=== PATIENT | female | born 1945 | race Caucasian/White ===

== ENCOUNTER 2016-12-12 04:59 | Observation (INO) | payer OTHER, MEDICARE ==
[2016-12-12] MEDS: NS 1000 ML 1,000 ML IV SCH ×2 (05:15→20:59)
[2016-12-12 05:16] VITALS: BMI 23.4
--- NOTE | 2016-12-12 05:21 | DR.GENAD ---
HPI - PCP Primary Care Physician: ELVI - Complaint/Symptoms Chief Complaint Doctors Comments: Patient states she woke up about two hours ago with her hurt pounding and could not get her breath. States she has been waking up about every two hours to go to the bathroom and having leg cramps. States she has fibromyalgia and her legs hurt often. She has been having problems with her stomach and saw Dr. Sanchez recently for an upper GI but she does not know the results. States she went to see Dr. Tapia, her heart doctor last week and he told her her heart was doing fine. She is having chest tightness with problems breathing. states she has problems like this when she gets dehydrated. states she has not been able to eat much lately because of her stomach problems. States she seee a PA in [place] but the ambulance brings her to this hospital. She denies cold or cough, fever or chills. She denies any recent trauma. Chief Complaint:: "I WOKE UP LEGS HURTING COULDNT HARDLY BREATH AND MY HEART WAS POUNDING.' - Nurses notes reviewed Nurses Notes Review: Yes - Source History Provided: Patient - Mode of Arrival Mode of Arrival: Wheelchair - Timing Onset of Chief Complaint: 12/12/16 Came on: Gradually - Duration Duration: Constant How lon Duration: Hours - Location Location: chest tightness; heart pounding - Severity Severity: Moderate - Modifying Factors Worsens:: nothing Improves:: nothing PMH - PMH Past Medical History: Yes Past Medical History: Anxiety, Dyslipidemia, GERD, Hypertension, Hypothyroidism Past Surgical History: Yes Surgical History: Cholecystectomy, Hysterectomy - Family History History of Family Medical Conditions: Yes Family Medical History: Diabetes Mellitus, Cancer, Coronary Artery Disease, Hypertension - Social History Alcohol Use: None Do you use any recreational Drugs:: No Lives Where: Home - infectious screening Have you traveled outside the country in the last 6 months?: No ROS - Review of Systems Constitutional: No Symptoms Reported, Loss of Appetite. negative: See HPI, Chills, Diaphoresis, Fever, Malaise, Weakness, Irritable, Fatigue, Other Eyes: No Symptoms Reported. negative: See HPI, Eye Pain, Blurred Vision, Tearing, Discharge, Photophobia, Diplopia, Other ENTM: No Symptoms Reported Respiratoy: No Symptoms Reported, Short of Breath. negative: See HPI, Productive Cough, Non-Productive Cough, Moist Cough, Dry Cough, Hacking Cough, Barking Cough, Brassy Cough, Orthopnea, Stridor, Wheezing, Hemoptysis, Other Cardiovascular: Chest Pain, Palpitations. negative: No Symptoms Reported, See HPI, Edema, Syncope, Cyanosis, Skin Mottling, Other Gastrointestinal/Abdominal: No Symptoms Reported. negative: See HPI, Abdominal Pain, Constipation, Diarrhea, Nausea, Vomiting, Food Intolerance, Other Genitourinary: No Symptoms Reported. negative: See HPI, Discharge, Dysuria, Frequency, Hematuria, Pain, Bleeding, Other Neurological: No Symptoms Reported, Anxiety, Emotional Problems Musculoskeletal: No Symptoms Reported Integumentary: No Symptoms Reported. negative: See HPI, Change in Color, Change in Hair/Nails, Dryness, Lesions, Lumps, Rash, Itching, Wound, Bruises, Juandice, Other Hematologic/Lymphatic: No Symptoms Reported. negative: See HPI, Anemia, Blood Clots, Easy Bleeding, Easy Bruising, Swollen Glands, Lymphadenopathy, Other Endocrine: No Symptoms Reported, Decreased Appetite. negative: See HPI, Excessive Sweating, Flushing, Intolerance to Cold, Intolerance to Heat, Increased Hunger, Increased Thirst, Increased Urine, Unexplained Weight Gain, Unexplained Weight Loss, Failure to Thrive, Other Psychiatric: No Symptoms Reported, Anxiety. negative: See HPI, Depression, Hallucinations, Excessive crying, Suicidal, Other PE - Vital Signs Vitals: Temperature 97.9 F Pulse Rate [Apical] 72 Pulse Rate 86 Respiratory Rate 26 Blood Pressure [Right Arm] 172/84 Blood Pressure 173/88 O2 Sat by Pulse Oximetry 100 - General Limitations: No Limitations General Appearance: Alert, Anxious, In Distress (moderate) - Head Head Exam: Normal Inspection, Atraumatic, Normocephalic - Eyes Eye exam: Normal Appearance, PERRL, EOMI. negative: Scleral Icterus, Conjunctival Injection, Nystagmus, Miosis, Mydrasis, Periorbital Swelling, Periorbital Tenderness, Other - ENT ENT Exam: Normal Exam, Normal Oropharynx, Normal External Ear Exam, Mucous Membranes Moist, TM's Normal Bilaterally External Ear Exam: Normal External Inspection TM/Canal Exam: Bilateral Normal Nose Exam: Normal Nose Exam Mouth Exam: Normal Inspection. negative: Drooling, Trismus, Lip Swelling, Tongue Elevation, Tongue Swelling, Laceration, Other Throat Exam: Normal Inspection - Neck Neck Exam: Normal Inspection, Full ROM, Trachea Midline. negative: Tenderness, Meningismus, Lymphadenopathy, Thyromegaly, Other - Chest Chest Inspection: Normal Inspection, Symmetric Chest Wall Rise. negative: Tenderness, Rash, Abscess, Other - Respiratory Respiratory Exam: Normal Lung Sounds Bilat Respiratory Exam: Bilateral Clear to Auscultation - Cardiovascular Cardiovascular Exam: Regular Rate, Normal Rhythm, Normal Heart Sounds - Abdominal Exam Abdominal Exam: Normal Inspection, Normal Bowel Sounds, Soft, Tenderness ( epigastric tenderness). negative: Distention, Guarding, Rebound, Rigidity, Dimnished Bowel Sounds, Hyperactive Bowel Sounds, Hypoactive Bowel Sounds, Organomegaly, Trauma, Incision, Ascites, Mass, Bruit, Pulsatile Mass, Hernia, Other Abdominal Tenderness: Epigastrium, Mild. negative: RUQ, RLQ, LUQ, LLQ, Suprapubic, Diffuse, Moderate, Severe, Other - Extremities Extremities Exam: Normal Inspection, Full ROM, Normal Capillary Refill. negative: Tenderness, Edema, Joint Swelling, Calf Tenderness, Other - Back Back Exam: Normal Inspection, Full ROM. negative: Tenderness, (R) CVA Tenderness, (L) CVA Tenderness, Muscle Spasm, Paraspinal Tenderness, Vertebral Tenderness, Rashes, (R) Sciatic Notch Tenderness, (L) Sciatic Notch Tendern, (R ) Straight Leg Raise, (L) Straight Leg Raise, Other - Neurologic Neurological Exam: Alert, Oriented X3, CN II-XII Intact, Normal Gait, Reflexes Normal - Psychiatric Psychiatric Exam: Normal Affect, Normal Mood. negative: Depressed, Agitated, Anxious, Flat Affect, Manic, Homicidal Ideation, Suicidal Ideation, Other - Skin Skin Exam: Warm, Dry, Intact, Normal Color. negative: Rash, Cyanosis, Diaphoresis, Erythema, Pallor, Mottled, Other Course - Consultation Called: 06:24 Call Returned: 06:25 (Dr Yu to admit) - Education/Counseling Education/Counseling: Patient, Family Educated On: Treatment, Diagnosis, Prognosis, Needs for Follow Up ROR - Labs Reviewed Laboratory Results Reviewed?: Yes (All labs and x-ray results reviewed and discussed with pataient) Result Diagrams: 12/12/16 05:00 12/12/16 05:00 Laboratory: WBC 7.0 X10^3/uL (3.6-10.0) 12/12/16 05:00 RBC 4.32 X10^6/uL (3.5-5.4) 12/12/16 05:00 Hgb 12.8 g/dL (12.0-16.0) 12/12/16 05:00 Hct 37.3 % (36.0-47.0) 12/12/16 05:00 MCV 86.3 fL (80.0-100.0) 12/12/16 05:00 MCH 29.5 pg (27.0-34.0) 12/12/16 05:00 MCHC 34.2 g/dL (33.0-35.0) 12/12/16 05:00 RDW 13.9 % (11.6-16.5) 12/12/16 05:00 Plt Count 305 X10^3/uL (150.0-450.0) 12/12/16 05:00 MPV 8.9 fL (7.4-11.0) 12/12/16 05:00 Neut % 35.8 % (42.0-75.0) L 12/12/16 05:00 Lymph % 52.2 % (21.0-51.0) H 12/12/16 05:00 Clay % 9.6 % (0.0-13.0) 12/12/16 05:00 Eos % 1.7 % (0.9-2.9) 12/12/16 05:00 Baso % 0.7 % (0.2-1.0) 12/12/16 05:00 Neut # 2.5 x10^3/uL (2.2-4.8) 12/12/16 05:00 Lymph # 3.6 X10^3/uL (1.3-2.9) H 12/12/16 05:00 Clay # 0.7 x10^3/uL (0.3-0.8) 12/12/16 05:00 Eos # 0.1 x10^3/uL (0.0-0.2) 12/12/16 05:00 Baso # 0.0 X10^3/uL (0.0-0.1) 12/12/16 05:00 Absolute Nucleated RBC 0.1 /100WBC 12/12/16 05:00 INR Target Range - 12/12/16 05:00 INR 0.97 (0.8-1.3) 12/12/16 05:00 PTT 28.3 SECONDS (22.9-36.5) 12/12/16 05:00 PTT Comment - 12/12/16 05:00 D-Dimer 147 ng/mL (0-400) 12/12/16 05:00 Sodium 142 mmol/L (136-145) 12/12/16 05:00 Corrected Sodium 142 mmol/L (136-145) 12/12/16 05:00 Potassium 3.5 mmol/L (3.5-5.1) 12/12/16 05:00 Chloride 105 mmol/L (98-107) 12/12/16 05:00 Carbon Dioxide 24.9 mmol/L (21-32) 12/12/16 05:00 BUN 20 mg/dL (7-18) H 12/12/16 05:00 Creatinine 1.03 mg/dL (0.55-1.02) H 12/12/16 05:00 Est GFR (MDRD) Af Amer > 60 (>60) 12/12/16 05:00 Est GFR (MDRD) Non-Af 56 (>60) L 12/12/16 05:00 Glucose 112 mg/dL (65-99) H 12/12/16 05:00 Calcium 9.0 mg/dL (8.5-10.1) 12/12/16 05:00 Corrected Calcium TNP 12/12/16 05:00 Magnesium 2.0 mg/dL (1.7-2.9) 12/12/16 05:00 Total Bilirubin 0.50 mg/dL (0.2-1.0) 12/12/16 05:00 AST 34 Units/L (15-37) 12/12/16 05:00 ALT 34 Units/L (12-78) 12/12/16 05:00 Alkaline Phosphatase 41 Units/L (46-116) L 12/12/16 05:00 Creatine Kinase 114 Units/L (26-192) 12/12/16 05:00 CK-MB (CK-2) 1.3 ng/mL (0-4.0) 12/12/16 05:00 CK/CKMB % Calc 1.1 % (<4) 12/12/16 05:00 Troponin I < 0.02 ng/mL (0-1.5) 12/12/16 05:00 Total Protein 7.5 g/dL (6.4-8.2) 12/12/16 05:00 Albumin 3.9 g/dL (3.4-5.0) 12/12/16 05:00 Globulin 3.6 g/dL (2.5-4.5) 12/12/16 05:00 Albumin/Globulin Ratio 1.1 Ratio (1.1-2.1) 12/12/16 05:00 Specimen Type Clean catch urine 12/12/16 05:28 Urine Color Yellow (YELLOW) 12/12/16 05:28 Urine Appearance Clear (CLEAR) 12/12/16 05:28 Urine pH 8.0 (5.0 - 8.0) 12/12/16 05:28 Ur Specific [place] 1.015 (1.000-1.030) 12/12/16 05:28 Urine Protein Negative (NEGATIVE) 12/12/16 05:28 Urine Glucose (UA) Negative (NEGATIVE) 12/12/16 05:28 Urine Ketones Negative (NEGATIVE) 12/12/16 05:28 Urine Occult Blood Negative (NEGATIVE) 12/12/16 05:28 Urine Nitrite Negative (NEGATIVE) 12/12/16 05:28 Urine Bilirubin Negative (NEGATIVE) 12/12/16 05:28 Urine Urobilinogen Normal (NORMAL) 12/12/16 05:28 Ur Leukocyte Esterase Negative (NEGATIVE) 12/12/16 05:28 Urine RBC None seen /HPF (NEGATIVE) 12/12/16 05:28 Urine WBC None seen /HPF (NEGATIVE) 12/12/16 05:28 Ur Squamous Epith Cells Rare /HPF (NEGATIVE) 12/12/16 05:28 Urine Bacteria 1+ /HPF (NEGATIVE) 12/12/16 05:28 Ur Culture Indicated? No/not indicated 12/12/16 05:28 H. pylori IgG Antibody Positive (NEGATIVE) A 12/12/16 05:00 - XRAY XRAY Interpreted by: Radiologist (CXR: Normal Chest x-ray) - EKG Rate: 77 [place]: Normal Rhythm: NSR Block: None Hypertrophy: None ST: Old, Ant, Infarct, Nonsp - Diagnosis Discharge Problem: Chest pain, rule out acute myocardial infarction, Gastritis, Helicobacter pylori, Palpitation, Abnormal EKG, Anxiety, Hypertension - Discharge Plan Disposition: ADMITTED INPATIENT Condition: Stable - Follow ups/Referrals Follow ups/Referrals: ALEJANDRO BOLES [Primary Care Provider] - 3 days - Instructions
[2016-12-12 05:24] LABS: BASOPHILS % (AUTO) 0.7 % (0.2-1.0); EOSINOPHILS # (AUTO) 0.1 x10^3/uL (0.0-0.2); EOSINOPHILS % (AUTO) 1.7 % (0.9-2.9); HEMATOCRIT 37.3 % (36.0-47.0); HEMOGLOBIN 12.8 g/dL (12.0-16.0); LYMPHOCYTES # (AUTO) 3.6 X10^3/uL (1.3-2.9); LYMPHOCYTES % (AUTO) 52.2 % (21.0-51.0); MEAN CORPUSCULAR HEMOGLOBIN 29.5 pg (27.0-34.0); MEAN CORPUSCULAR HGB CONC 34.2 g/dL (33.0-35.0); MEAN CORPUSCULAR VOLUME 86.3 fL (80.0-100.0); MEAN PLATELET VOLUME 8.9 fL (7.4-11.0); MONOCYTES # (AUTO) 0.7 x10^3/uL (0.3-0.8); MONOCYTES % (AUTO) 9.6 % (0.0-13.0); NEUTROPHILS # (AUTO) 2.5 x10^3/uL (2.2-4.8); NEUTROPHILS % (AUTO) 35.8 % (42.0-75.0); PLATELET COUNT 305 X10^3/uL (150.0-450.0); RED BLOOD COUNT 4.32 X10^6/uL (3.5-5.4); RED CELL DISTRIBUTION WIDTH 13.9 % (11.6-16.5)
[2016-12-12 05:37] LABS: BLOOD UREA NITROGEN 20 mg/dL (7-18); CARBON DIOXIDE 24.9 mmol/L (21-32); CHLORIDE 105 mmol/L (98-107); COR NA(FOR HYPERGLY) 142 mmol/L (136-145); CREATININE 1.03 mg/dL (0.55-1.02); GLUCOSE 112 mg/dL (65-99); SODIUM 142 mmol/L (136-145); TROPONIN I < 0.02 ng/mL (0-1.5); eGFR BLACK RACES > 60 (>60); eGFR NON BLACK RACES 56 (>60)
[2016-12-12 05:41] LABS: ALANINE AMINOTRANSFERASE 34 Units/L (12-78); ALBUMIN 3.9 g/dL (3.4-5.0); ALKALINE PHOSPHATASE 41 Units/L (46-116); ASPARTATE AMINO TRANSFERASE 34 Units/L (15-37); CKMB % 1.1 % (<4); CREATINE KINASE 114 Units/L (26-192); CREATINE KINASE MB 1.3 ng/mL (0-4.0); TOTAL PROTEIN 7.5 g/dL (6.4-8.2)
[2016-12-12 05:54] LABS: BILIRUBIN,URINE NEGATIVE (NEGATIVE); BLOOD/HEMOGLOBIN,URINE NEGATIVE (NEGATIVE); GLUCOSE, URINE NEGATIVE (NEGATIVE); KETONES,URINE NEGATIVE (NEGATIVE); LEUKOCYTE ESTERASE ,URINE NEGATIVE (NEGATIVE); NITRITES,URINE NEGATIVE (NEGATIVE); PROTEIN,URINE NEGATIVE (NEGATIVE); UROBILINOGEN,URINE NORMAL (NORMAL)
[2016-12-12 05:55] LABS: D DIMER 147 ng/mL (0-400)
[2016-12-12 06:01] LABS: APPEARANCE,URINE CLEAR (CLEAR); COLOR,URINE YELLOW (YELLOW); RBC,URINE NONE SEEN /HPF (NEGATIVE)
--- NOTE | 2016-12-12 06:01 | RAD ---
EXAM: Chest X-ray INDICATION: Chest pain COMPARISION: Prior exam from March 14, 2015 TECHNIQUE: AP, single view FINDINGS: The lungs are clear in the lung volumes are within normal limits. No pleural effusion or pneumothora x. The cardiac silhouette and mediastinum are normal. The regional skeleton is intact. IMPRESSION: Normal Chest X-Ray Reported By:
[2016-12-12 06:02] LABS: BACTERIA,URINE 1+ /HPF (NEGATIVE); SQUAMOUS EPITHELIAL CELL,UR RARE /HPF (NEGATIVE)
[2016-12-12] MEDS ORDERED: PEPCID 20 MG IV PREMIX* 20 MG/50 ML BAG IV SCH (07:00)
[2016-12-12] MEDS ORDERED: LOSARTAN POTASSIUM 100 MG PO SCH (09:00)
[2016-12-12] MEDS: PEPCID 20 MG IV PREMIX* 20 MG/50 ML BAG IV SCH (09:42)
[2016-12-12] MEDS: COZAAR PO SCH (09:42)
[2016-12-12] MEDS: SYNTHROID 50 mcg TAB PO SCH (09:42)
[2016-12-12] MEDS: NORVASC TAB 10 MG PO SCH (09:43)
[2016-12-12] MEDS: PROTONIX TAB 40 MG PO SCH (11:37)
[2016-12-12] MEDS: LEVSIN/MAALOX/LIDOC VISC PO SCH ×4 (11:37→21:00)
[2016-12-12 12:05] LABS: CREATINE KINASE 100 Units/L (26-192); CREATINE KINASE MB < 1.0 ng/mL (0-4.0); TROPONIN I < 0.02 ng/mL (0-1.5)
--- NOTE | 2016-12-12 12:17 | DR.H&P ---
H&P - History & Physical for Day of: H&P Date: 12/12/16 - Chief Complaint Chief Complaint: CHEST PAIN - Allergies Allergies/Adverse Reactions: Allergies Allergy/AdvReac Type Severity Reaction Status Date / Time Acetaminophen [From Tylox] Allergy Verified 12/12/16 10:42 MS Hydromorphone Allergy Verified 12/12/16 10:42 [From Dilaudid] MS Levofloxacin Allergy Verified 12/12/16 10:42 [From Levaquin] MS Morphine [Morphine] Allergy Verified 12/12/16 10:42 MS Nalbuphine [From Nubain] Allergy Verified 12/12/16 10:42 MS Oxycodone [From Tylox] Allergy Verified 12/12/16 10:42 - History of Present Illness History of Present Illness: IS A 71 YEAR OLD FEMALE WHO PRESENTED TO THE ER WITH COMPLAINTS OF CHEST TIGHTNESS AND PALPATATIONS, SHORTNESS OF BREATH , AND LEG CRAMPS THAT STARTED 2 HOURS PRIOR TO ARRIVAL. PATIENT ALSO COMPLAINS OF HAVING SOME ABDOMINAL PAIN AND INDIGESTION. ON ARRIVAL TO ER, VITALS WERE 97.9, 86, 24, 100%, 172/84. LABS WERE OBTAINED AND REPORT A NORMAL CBC. CMP NORMAL EXCEPT BUN 20, CREATININE 1.03. H-PYLORI WAS POSITIVE. CHEST XRAY, CARDIAC ENZYMES, AND EKG WITHIN NORMAL LIMITS. WE ADMITTED PATIENT FOR FURTHER TREATMENT AND EVALUATION. ON MORNING ROUNDS, PATIENT WAS LYING IN BED WITH EYES OPEN. PATIENT CONTINUES WITH COMPLAINTS OF BURNING TYPE PAINS IN STOMACH AND SHORTNESS OF BREATH. LUNGS ARE CLEAR ON AUSCULTATION AND BOWEL SOUNDS ARE NORMAL IN ALL QUADRANTS. WE WILL START PATIENT ON IVF, IV PEPCID, GI COCKTAIL, AND PROTONIX. WE WILL RECHECK LABS AND FOLLOW UP WITH PATIENT IN AM. - Past Medical History Past Medical History: Anxiety, Arthritis, Dyslipidemia, GERD, Hypertension, Hypothyroidism Additional Medical History: MACULAR DEGENERATION - Past Surgical History Surgical History: Cholecystectomy, Hysterectomy Additional Surgical History: CATARACTS - Family History Family Medical History: Diabetes Mellitus, Cancer, Coronary Artery Disease, Hypertension Family History Comment: CVA - Social History Does patient currently use any type of tobacco product: No Have you used tobacco products in the last 12 months: No Type of Tobacco Use: None Alcohol Use: None - Medications Home Medications: Amlodipine Besylate [NORVASC 10 MG *] 10 mg PO DAILY 12/12/16 [History Confirmed 12/12/16] Aspirin EC [ASPIRIN EC 81 MG *] 4 tabs PO DAILY 12/12/16 [History Confirmed 02/20] Docusate Sodium [Col-Rite] 1 tab PO DAILY 12/12/16 [History Confirmed 12/12/16] Donepezil Hydrochloride [Aricept Tab 10 mg] 10 mg PO BID 12/12/16 [History Confirmed 12/12/16] Pantoprazole Sodium 40 mg [Protonix Tab 40 mg] 40 mg PO DAILY 12/12/16 [History Confirmed 12/12/16] Pregabalin [Lyrica] 1 cap PO TID 12/12/16 [History Confirmed 12/12/16] - Review of Systems Constitutional: No Symptoms Reported. denies: See HPI, Fever, Chills, Sweats, Weakness, Malaise, Other Eyes: No Symptoms Reported. denies: See HPI, Pain, Vision Change, Conjunctivae Inflammation, Eyelid Inflammation, Redness, Other ENT: No Symptoms Reported. denies: See HPI, Ear Pain, Ear Discharge, Nose Pain , Nose Discharge, Nose Congestion, Mouth Pain, Mouth Swelling, Throat Pain, Throat Swelling, Other Respiratory: Shortness of Breath. denies: No Symptoms Reported, Cough, Dry, Hemoptysis, SOB with Excertion, Pleuritic Pain, Sputum, Wheezing, Other Cardiovascular: Chest Pain, See HPI Gastrointestinal: Abdominal Pain Genitourinary: No Symptoms Reported. denies: See HPI, Dysuria, Frequency, Incontinence, Hematuria, Retention, Other Musculoskeletal: No Symptoms Reported. denies: See HPI, Shoulder Pain, Arm Pain , Back Pain, Hand Pain, Leg Pain, Foot Pain, Neck Pain, Other Skin: No Symptoms Reported. denies: See HPI, Rash, Lesions, Jaundice, Bruising , Wound, Ecchymosis, Other - Physical Exam Vital Signs: Temperature 98.6 F Pulse Rate [Right Brachial] 56 Pulse Rate [Apical] 56 Respiratory Rate 20 Blood Pressure [Right Arm] 198/81 O2 Sat by Pulse Oximetry 97 Oriented: Normal Eyes: Normal. negative: Blurred Vision, Diplopia, Discharge, Pain, Redness, Photophobia, Other Ear: Normal. negative: Right, Left, Swelling, Ecchymosis, Hemotypanum, Abrasion , Laceration Nose: Normal. negative: Injected, Discharge, Blood, Other Throat: Normal. negative: Tonsillar Hypertrophy, Red, Exudate, Dry, Other Respiratory: Clear Throughout. negative: Diminished Throughout, Rhonchi Throughout, Rales Throughout, Wheezes Throughout, RUL Clear, RML Clear, RLL Clear, CAESAR Clear, LML Clear, LLL Clear, RUL Diminished, RML Diminished, RLL Diminished, [place]ES[place] Diminished, LML Diminished, LLL Diminished, RUL Absent, RML Absent, RLL Absent, CAESAR Absent, LML Absent, LLL Absent, RUL Rhonchi, RML Rhonchi , RLL Rhonchi, CAESAR Rhonchi, LML Rhonchi, LLL Rhonchi, RUL Insp. Wheeze, RML Insp. Wheeze, RLL Insp. Wheeze, CAESAR Insp.Wheeze, LML Insp.Wheeze, LLL Insp.Wheeze, RUL Exp. Wheeze, RML Exp. Wheeze, RLL Exp. Wheeze, CAESAR Exp. Wheeze , LML Exp. Wheeze, LLL Exp. Wheeze, RUL Rales, RML Rales, RLL Rales, CAESAR Rales, LML Rales, LLL Rales, RUL Rub, RML Rub, RLL Rub, CAESAR Rub, LML Rub, LLL Rub, RUL Squeak, RML Squeak, RLL Squeak, CAESAR Squeak, LML Squeak, LLL Squeak Cardiovascular: Normal. negative: Tachycardia, Bradycardia, Irregular, S3, S4, Systolic, Diastolic, Murmur, Edema, Other : Normal. negative: Dysuria, Hematuria, Frequency, Discharge, Testicular Pain , Bleeding, , Other Auscultation: Bowel Sounds: Normal. negative: Bruit, Absent, Increased, Decreased, High Pitched, Other Palpation: Normal. negative: Spleen Enlarged, Liver Enlarged, Mass Pulsatile, Other Tenderness: Normal. negative: Diffuse, RUQ, RLQ, LUQ, LLQ, Epigastric, Periumbilical, Suprapubic, Mild, Moderate, Severe, Rebound, Guarding, Rigidity, Other Skin: Normal. negative: Decreased Turgur, Rash, Papular, Macular, Maculopapular , Vesicular, Pustular, Petechial, Red, Tender, Hot, Diaphoresis, Wound, Bruising , Ecchymosis, Other Musculoskeletal: Normal. negative: Right, Left, Shoulder, Clavicle, Arm, Elbow , Forearm, Wrist, Hand, Hip, Thigh, Knee, Leg, Ankle, Foot, Back:Thoracic, Back: Lumbar, Back:Midline, Back:Paraspinous, Pelvis, Swelling, Tender, Deformity, Pulse Deficit, Motor Deficit, Sensory Deficit, Instability, Crepitance Psychiatric: Normal. negative: Anxiety, Depression, Agitation, Other Mood Description: Calm, Appropriate. negative: Angry, Apathetic, Depressed, Fearful, Flat, Happy, Hostile, Sad, Suspicious, Withdrawn, Anxious, Labile Affect: Normal Speech Pattern: Clear - Assessment/Plan (1) Chest pain, rule out acute myocardial infarction Status: Acute Plan: CARDIAC ENZYMES, EKG, CONTINUE TO MONITOR (2) Gastritis, Helicobacter pylori Status: Acute Plan: PEPCID, PROTONIX, GI COCKTAIL, CONTINUE TO MONITOR
[2016-12-12 17:43] LABS: CREATINE KINASE 87 Units/L (26-192); CREATINE KINASE MB < 1.0 ng/mL (0-4.0); TROPONIN I < 0.02 ng/mL (0-1.5)
[2016-12-12 18:01] LABS: CKMB % 1.2 % (<4)
[2016-12-12 23:53] LABS: CKMB % 1.4 % (<4); CREATINE KINASE 74 Units/L (26-192); CREATINE KINASE MB < 1.0 ng/mL (0-4.0); TROPONIN I < 0.02 ng/mL (0-1.5)
[2016-12-13] MEDS ORDERED: PHENERGAN INJ 25 MG IV PRN (03:26)
[2016-12-13 05:28] LABS: ALANINE AMINOTRANSFERASE 26 Units/L (12-78); ALBUMIN 3.3 g/dL (3.4-5.0); ALKALINE PHOSPHATASE 34 Units/L (46-116); ASPARTATE AMINO TRANSFERASE 24 Units/L (15-37); BLOOD UREA NITROGEN 17 mg/dL (7-18); CALCIUM 8.2 mg/dL (8.5-10.1); CARBON DIOXIDE 26.4 mmol/L (21-32); CHLORIDE 107 mmol/L (98-107); CHOL/HDL RATIO 3.3 (0.0-5.0); CHOLESTEROL 201 mg/dL (0-200); COR CA(FOR HYPOALB) 8.8 mg/dL (8.5-10.1); CREATININE 0.78 mg/dL (0.55-1.02); GLUCOSE 107 mg/dL (65-99); HDL CHOLESTEROL 61 mg/dL (40-60); SODIUM 141 mmol/L (136-145); TOTAL PROTEIN 6.2 g/dL (6.4-8.2); TRIGLYCERIDES 61 mg/dL (0-150); eGFR BLACK RACES > 60 (>60); eGFR NON BLACK RACES > 60 (>60)
[2016-12-13 05:43] LABS: BASOPHILS # (AUTO) 0.1 X10^3/uL (0.0-0.1); BASOPHILS % (AUTO) 1.1 % (0.2-1.0); EOSINOPHILS # (AUTO) 0.1 x10^3/uL (0.0-0.2); EOSINOPHILS % (AUTO) 1.7 % (0.9-2.9); HEMATOCRIT 31.9 % (36.0-47.0); HEMOGLOBIN 11.1 g/dL (12.0-16.0); LYMPHOCYTES # (AUTO) 1.9 X10^3/uL (1.3-2.9); MEAN CORPUSCULAR HGB CONC 34.8 g/dL (33.0-35.0); MEAN CORPUSCULAR VOLUME 86.1 fL (80.0-100.0); MONOCYTES # (AUTO) 0.5 x10^3/uL (0.3-0.8); MONOCYTES % (AUTO) 9.3 % (0.0-13.0); NEUTROPHILS # (AUTO) 2.6 x10^3/uL (2.2-4.8); NEUTROPHILS % (AUTO) 50.9 % (42.0-75.0); PLATELET COUNT 243 X10^3/uL (150.0-450.0); RED CELL DISTRIBUTION WIDTH 13.7 % (11.6-16.5); WHITE BLOOD COUNT 5.1 X10^3/uL (3.6-10.0)
[2016-12-13] MEDS ORDERED: POTASSIUM CHLORIDE LIQ 20 MEQ UDC PO PRN (05:43)
[2016-12-13] MEDS ORDERED: K-LYTE EFFERVESCENT PO PRN (05:43)
[2016-12-13] MEDS ORDERED: K-RIDER 10 MEQ/NS 100 ML 10 MEQ/100 ML BAG IV PRN (05:43)
[2016-12-13] MEDS ORDERED: K-DUR TAB 20 MEQ PO PRN (05:43)
[2016-12-13] MEDS: NS 1000 ML 1,000 ML IV SCH ×2 (06:12→09:55)
[2016-12-13] MEDS: SYNTHROID 50 mcg TAB PO SCH (06:12)
--- NOTE | 2016-12-13 06:54 | RAD ---
HISTORY: Chest pain Study: Chest one view Comparison: December 12, 2016 Findings: The trachea is midline. The cardiac silhouette is unremarkable. The lungs are clear without focal infiltrate or effusion. The bony thorax is unremarkable. IMPRESSION: 1. No acute cardiopulmonary disease. Reported By:
[2016-12-13] MEDS: COZAAR PO SCH (08:39)
[2016-12-13] MEDS: NORVASC TAB 10 MG PO SCH (08:40)
[2016-12-13] MEDS: LEVSIN/MAALOX/LIDOC VISC PO SCH ×4 (08:40→21:40)
[2016-12-13] MEDS: PROTONIX TAB 40 MG PO SCH (08:41)
[2016-12-13] MEDS: PEPCID 20 MG IV PREMIX* 20 MG/50 ML BAG IV SCH (08:41)
[2016-12-13] MEDS ORDERED: ZOFRAN INJ 4 MG VIAL IVP PRN (11:09)
[2016-12-13] MEDS ORDERED: PATIENT'S HOME MEDICATION (Multiple Vitamins W/ Minerals [Multiple Vitamins W/ Minerals] 1 PO SCH (11:30)
[2016-12-13] MEDS ORDERED: PATIENT'S HOME MEDICATION (Fenofibrate [Fenofibrate 160 Mg] 160 MG) PO SCH (11:30)
[2016-12-13] MEDS ORDERED: DOCUSATE SODIUM PO SCH (11:30)
[2016-12-13] MEDS: VITAMIN D3 PO SCH (13:08)
[2016-12-13] MEDS: LYRICA CAP 50 MG PO SCH ×2 (13:09→21:41)
[2016-12-13] MEDS: ARICEPT TAB 10 MG PO SCH ×2 (13:09→21:39)
[2016-12-13] MEDS ORDERED: PREGABALIN PO SCH (14:00)
[2016-12-13] MEDS: ASPIRIN PO SCH (14:15)
--- NOTE | 2016-12-13 14:38 | PCM.PROG ---
Progress Note - Progress Note for Day of Date: 12/13/16 ( ) - Subjective Subjective: IS AWAKE AND ORIENTED ON MORNING ROUNDS WITH COMPLAINTS OF ABDOMINAL PAIN. SHE STATES THAT SHE HAS BEEN NAUSEATED THROUGHOUT THE NIGHT, BUT DENIES ANY CHEST PAIN OR SHORTNESS OF BREATH. LUNGS WERE CLEAR TO AUSCULTATION. BOWEL SOUND WERE NORMAL IN ALL QUADRANTS. VITALS THIS MORNING ARE 98.1, 63, 18, 98, 146/70. LABS WERE WNL EXCEPT HBG 11.1, HCT 31.9, POTASSIUM 3.4 , GLUCOSE 107, CALCIUM 8.2, ALKALINE PHOSPHATASE 34, TOTAL PROTEIN 6.2, ALBUMIN 3.3, CHOLESTEROL 201, LDL 128, HDL 61. CHEST XRAY THIS MORNING WAS NORMAL. WE WILL START HER ON ZOFRAN TODAY AND CONSULT FOR GI ISSUES. WE WILL RECHECK LABS AND FOLLOW UP WITH PATIENT IN AM. - Past Medical Family Social History Past Med/Fam/Surg Hx: No changes since H&P Allergies: Allergies MS Acetaminophen [From Tylox] Allergy (Verified 12/12/16 10:42) MS Hydromorphone [From Dilaudid] Allergy (Verified 12/12/16 10:42) MS Levofloxacin [From Levaquin] Allergy (Verified 12/12/16 10:42) MS Morphine [Morphine] Allergy (Verified 12/12/16 10:42) MS Nalbuphine [From Nubain] Allergy (Verified 12/12/16 10:42) MS Oxycodone [From Tylox] Allergy (Verified 12/12/16 10:42) - Review of Systems ROS: No change since H&P - Vital Signs and I&O's Vital Signs: Temperature 98.1 F Pulse Rate [Right Brachial] 63 Pulse Rate [Apical] 56 Respiratory Rate 18 Blood Pressure [Right Arm] 146/70 O2 Sat by Pulse Oximetry 98 Intake and Output: Intake & Output 12/11/16 12/12/16 12/13/16 12/14/16 11:59 11:59 11:59 11:59 Intake Total 970 Balance 970 - Physical Exam Oriented: Normal Eyes: Normal. negative: Blurred Vision, Diplopia, Discharge, Pain, Redness, Photophobia, Other Ear: Normal. negative: Right, Left, Swelling, Ecchymosis, Hemotypanum, Abrasion , Laceration Nose: Normal. negative: Injected, Discharge, Blood, Other Throat: Normal. negative: Tonsillar Hypertrophy, Red, Exudate, Dry, Other Respiratory: Normal Cardiovascular: Normal. negative: Tachycardia, Bradycardia, Irregular, S3, S4, Systolic, Diastolic, Murmur, Edema, Other : Normal. negative: Dysuria, Hematuria, Frequency, Discharge, Testicular Pain , Bleeding, , Other Auscultation: Bowel Sounds: Normal. negative: Bruit, Absent, Increased, Decreased, High Pitched, Other Palpation: Normal Tenderness: Normal. negative: Diffuse, RUQ, RLQ, LUQ, LLQ, Epigastric, Periumbilical, Suprapubic, Mild, Moderate, Severe, Rebound, Guarding, Rigidity, Other Skin: Normal. negative: Decreased Turgur, Rash, Papular, Macular, Maculopapular , Vesicular, Pustular, Petechial, Red, Tender, Hot, Diaphoresis, Wound, Bruising , Ecchymosis, Other Musculoskeletal: Normal. negative: Right, Left, Shoulder, Clavicle, Arm, Elbow , Forearm, Wrist, Hand, Hip, Thigh, Knee, Leg, Ankle, Foot, Back:Thoracic, Back: Lumbar, Back:Midline, Back:Paraspinous, Pelvis, Swelling, Tender, Deformity, Pulse Deficit, Motor Deficit, Sensory Deficit, Instability, Crepitance Psychiatric: Normal. negative: Anxiety, Depression, Agitation, Other Mood Description: Calm, Appropriate. negative: Angry, Apathetic, Depressed, Fearful, Flat, Happy, Hostile, Sad, Suspicious, Withdrawn, Anxious, Labile Affect: Normal Speech Pattern: Clear - Laboratory and Diagnostics Result Diagrams: 12/13/16 04:25 12/13/16 04:25 Labs: Laboratory WBC 5.1 X10^3/uL (3.6-10.0) 12/13/16 04:25 RBC 3.70 X10^6/uL (3.5-5.4) 12/13/16 04:25 Hgb 11.1 g/dL (12.0-16.0) L 12/13/16 04:25 Hct 31.9 % (36.0-47.0) L 12/13/16 04:25 MCV 86.1 fL (80.0-100.0) 12/13/16 04:25 MCH 30.0 pg (27.0-34.0) 12/13/16 04:25 MCHC 34.8 g/dL (33.0-35.0) 12/13/16 04:25 RDW 13.7 % (11.6-16.5) 12/13/16 04:25 Plt Count 243 X10^3/uL (150.0-450.0) 12/13/16 04:25 MPV 9.0 fL (7.4-11.0) 12/13/16 04:25 Neut % 50.9 % (42.0-75.0) 12/13/16 04:25 Lymph % 37.0 % (21.0-51.0) 12/13/16 04:25 [place] % 9.3 % (0.0-13.0) 12/13/16 04:25 Eos % 1.7 % (0.9-2.9) 12/13/16 04:25 Baso % 1.1 % (0.2-1.0) H 12/13/16 04:25 Neut # 2.6 x10^3/uL (2.2-4.8) 12/13/16 04:25 Lymph # 1.9 X10^3/uL (1.3-2.9) 12/13/16 04:25 Scott # 0.5 x10^3/uL (0.3-0.8) 12/13/16 04:25 Eos # 0.1 x10^3/uL (0.0-0.2) 12/13/16 04:25 Baso # 0.1 X10^3/uL (0.0-0.1) 12/13/16 04:25 Absolute Nucleated RBC 0.0 /100WBC 12/13/16 04:25 INR Target Range - 12/12/16 05:00 INR 0.97 (0.8-1.3) 12/12/16 05:00 PTT 28.3 SECONDS (22.9-36.5) 12/12/16 05:00 PTT Comment - 12/12/16 05:00 D-Dimer 147 ng/mL (0-400) 12/12/16 05:00 Sodium 141 mmol/L (136-145) 12/13/16 04:25 Corrected Sodium TNP 12/13/16 04:25 Potassium 3.4 mmol/L (3.5-5.1) L 12/13/16 04:25 Chloride 107 mmol/L (98-107) 12/13/16 04:25 Carbon Dioxide 26.4 mmol/L (21-32) 12/13/16 04:25 BUN 17 mg/dL (7-18) 12/13/16 04:25 Creatinine 0.78 mg/dL (0.55-1.02) 12/13/16 04:25 Est GFR (MDRD) Af Amer > 60 (>60) 12/13/16 04:25 Est GFR (MDRD) Non-Af > 60 (>60) 12/13/16 04:25 Glucose 107 mg/dL (65-99) H 12/13/16 04:25 Calcium 8.2 mg/dL (8.5-10.1) L 12/13/16 04:25 Corrected Calcium 8.8 mg/dL (8.5-10.1) 12/13/16 04:25 Magnesium 2.0 mg/dL (1.7-2.9) 12/12/16 05:00 Total Bilirubin 0.50 mg/dL (0.2-1.0) 12/13/16 04:25 AST 24 Units/L (15-37) 12/13/16 04:25 ALT 26 Units/L (12-78) 12/13/16 04:25 Alkaline Phosphatase 34 Units/L (46-116) L 12/13/16 04:25 Creatine Kinase 74 Units/L (26-192) 12/12/16 23:05 CK-MB (CK-2) < 1.0 ng/mL (0-4.0) 12/12/16 23:05 CK/CKMB % Calc 1.4 % (<4) 12/12/16 23:05 Troponin I < 0.02 ng/mL (0-1.5) 12/12/16 23:05 Total Protein 6.2 g/dL (6.4-8.2) L 12/13/16 04:25 Albumin 3.3 g/dL (3.4-5.0) L 12/13/16 04:25 Globulin 2.9 g/dL (2.5-4.5) 12/13/16 04:25 Albumin/Globulin Ratio 1.1 Ratio (1.1-2.1) 12/13/16 04:25 Triglycerides 61 mg/dL (0-150) 12/13/16 04:25 Cholesterol 201 mg/dL (0-200) H 12/13/16 04:25 LDL Cholesterol, Calc 128 mg/dL (0-100) H 12/13/16 04:25 HDL Cholesterol 61 mg/dL (40-60) H 12/13/16 04:25 Cholesterol/HDL Ratio 3.3 (0.0-5.0) 12/13/16 04:25 Specimen Type Clean catch urine 12/12/16 05:28 Urine Color Yellow (YELLOW) 12/12/16 05:28 Urine Appearance Clear (CLEAR) 12/12/16 05:28 Urine pH 8.0 (5.0 - 8.0) 12/12/16 05:28 Ur Specific [place] 1.015 (1.000-1.030) 12/12/16 05:28 Urine Protein Negative (NEGATIVE) 12/12/16 05:28 Urine Glucose (UA) Negative (NEGATIVE) 12/12/16 05:28 Urine Ketones Negative (NEGATIVE) 12/12/16 05:28 Urine Occult Blood Negative (NEGATIVE) 12/12/16 05:28 Urine Nitrite Negative (NEGATIVE) 12/12/16 05:28 Urine Bilirubin Negative (NEGATIVE) 12/12/16 05:28 Urine Urobilinogen Normal (NORMAL) 12/12/16 05:28 Ur Leukocyte Esterase Negative (NEGATIVE) 12/12/16 05:28 Urine RBC None seen /HPF (NEGATIVE) 12/12/16 05:28 Urine WBC None seen /HPF (NEGATIVE) 12/12/16 05:28 Ur Squamous Epith Cells Rare /HPF (NEGATIVE) 12/12/16 05:28 Urine Bacteria 1+ /HPF (NEGATIVE) 12/12/16 05:28 Ur Culture Indicated? No/not indicated 12/12/16 05:28 H. pylori IgG Antibody Positive (NEGATIVE) A 12/12/16 05:00 - Plan (1) Chest pain, rule out acute myocardial infarction Status: Acute Plan: CARDIAC ENZYMES, EKG, CONTINUE TO MONITOR (2) Gastritis, Helicobacter pylori Status: Acute Plan: PEPCID, PROTONIX, GI COCKTAIL, CONTINUE TO MONITOR (3) Nausea Status: Acute Plan: ZOFRAN, CONTINUE TO MONITOR (4) Hyperlipidemia Status: Chronic Qualifiers: Hyperlipidemia type: H Plan: START TRICOR, CONTINUE TO MONITOR (5) Hypertension Status: Chronic Qualifiers: Hypertension type: essential hypertension Qualified Code(s): I10 - Essential (primary) hypertension Plan: START COZAAR, CONTINUE TO MONITOR (6) Hypothyroidism Status: Chronic Qualifiers: Hypothyroidism type: acquired Qualified Code(s): E03.9 - Hypothyroidism, unspecified Plan: START SYNTHROID, CONTINUE TO MONITOR
[2016-12-14] MEDS: NS 1000 ML 1,000 ML IV SCH ×2 (00:26→13:39)
[2016-12-14 05:06] LABS: BASOPHILS # (AUTO) 0.1 X10^3/uL (0.0-0.1); BASOPHILS % (AUTO) 1.3 % (0.2-1.0); EOSINOPHILS # (AUTO) 0.1 x10^3/uL (0.0-0.2); EOSINOPHILS % (AUTO) 2.9 % (0.9-2.9); HEMATOCRIT 30.1 % (36.0-47.0); HEMOGLOBIN 10.5 g/dL (12.0-16.0); LYMPHOCYTES # (AUTO) 2.2 X10^3/uL (1.3-2.9); LYMPHOCYTES % (AUTO) 45.7 % (21.0-51.0); MEAN CORPUSCULAR HEMOGLOBIN 30.2 pg (27.0-34.0); MEAN CORPUSCULAR HGB CONC 34.7 g/dL (33.0-35.0); MEAN CORPUSCULAR VOLUME 86.9 fL (80.0-100.0); MEAN PLATELET VOLUME 8.8 fL (7.4-11.0); MONOCYTES # (AUTO) 0.6 x10^3/uL (0.3-0.8); MONOCYTES % (AUTO) 11.6 % (0.0-13.0); NEUTROPHILS # (AUTO) 1.9 x10^3/uL (2.2-4.8); NEUTROPHILS % (AUTO) 38.5 % (42.0-75.0); PLATELET COUNT 230 X10^3/uL (150.0-450.0); RED BLOOD COUNT 3.46 X10^6/uL (3.5-5.4); RED CELL DISTRIBUTION WIDTH 13.8 % (11.6-16.5); WHITE BLOOD COUNT 4.8 X10^3/uL (3.6-10.0)
[2016-12-14 05:09] LABS: ALANINE AMINOTRANSFERASE 23 Units/L (12-78); ALKALINE PHOSPHATASE 32 Units/L (46-116); ASPARTATE AMINO TRANSFERASE 21 Units/L (15-37); BLOOD UREA NITROGEN 18 mg/dL (7-18); CALCIUM 8.1 mg/dL (8.5-10.1); CARBON DIOXIDE 27.6 mmol/L (21-32); CHLORIDE 108 mmol/L (98-107); COR CA(FOR HYPOALB) 8.9 mg/dL (8.5-10.1); CREATININE 0.83 mg/dL (0.55-1.02); GLUCOSE 94 mg/dL (65-99); SODIUM 143 mmol/L (136-145); TOTAL PROTEIN 5.7 g/dL (6.4-8.2); eGFR BLACK RACES > 60 (>60); eGFR NON BLACK RACES > 60 (>60)
--- NOTE | 2016-12-14 06:12 | RAD ---
HISTORY: Chest pain Study: Chest one view Comparison: December 13, 2016 Findings: The trachea is midline. The cardiac silhouette is unremarkable. The lungs are clear without focal infiltrate or effusion. The bony thorax is unremarkable. IMPRESSION: 1. No acute cardiopulmonary disease. Reported By:
[2016-12-14] MEDS: LYRICA CAP 50 MG PO SCH ×3 (06:28→21:42)
[2016-12-14] MEDS: SYNTHROID 50 mcg TAB PO SCH (06:28)
[2016-12-14] MEDS: PEPCID 20 MG IV PREMIX* 20 MG/50 ML BAG IV SCH (09:02)
[2016-12-14] MEDS: COLACE CAP 100 MG PO SCH (09:03)
[2016-12-14] MEDS: COZAAR PO SCH (09:03)
[2016-12-14] MEDS: LEVSIN/MAALOX/LIDOC VISC PO SCH ×4 (09:03→21:43)
[2016-12-14] MEDS: TAB-A-VITE PO SCH (09:03)
[2016-12-14] MEDS: TRICOR TAB 160 MG PO SCH (09:03)
[2016-12-14] MEDS: VITAMIN D3 PO SCH (09:03)
[2016-12-14] MEDS: PROTONIX TAB 40 MG PO SCH (09:03)
[2016-12-14] MEDS: ARICEPT TAB 10 MG PO SCH ×2 (09:03→21:42)
[2016-12-14] MEDS: ASPIRIN PO SCH (09:04)
[2016-12-14] MEDS: NORVASC TAB 10 MG PO SCH (09:04)
--- NOTE | 2016-12-14 11:16 | PCM.PROG ---
Progress Note - Progress Note for Day of Date: 12/14/16 - Subjective Subjective: IS AWAKE AND ORIENTED ON MORNING ROUNDS. SHE CONTINUES WITH COMPLAINTS OF ABDOMINAL PAIN. LUNGS WERE CLEAR TO AUSCULTATION. BOWEL SOUND WERE NORMAL IN ALL QUADRANTS. VITALS THIS MORNING ARE 98.5,66,20,98,171/ 72. LABS WERE WNL EXCEPT HBG 10.5, HCT 30.1, CALCIUM 8.1, ALKALINE PHOSPHATASE 32, TOTAL PROTEIN 5.7, ALBUMIN 3.0. CHEST XRAY THIS MORNING WAS NORMAL. WE ARE AWAITING GI CONSULT. WE WILL RECHECK LABS AND FOLLOW UP WITH PATIENT IN AM. - Past Medical Family Social History Past Med/Fam/Surg Hx: No changes since H&P Allergies: Allergies MS Acetaminophen [From Tylox] Allergy (Verified 12/12/16 10:42) MS Hydromorphone [From Dilaudid] Allergy (Verified 12/12/16 10:42) MS Levofloxacin [From Levaquin] Allergy (Verified 12/12/16 10:42) MS Morphine [Morphine] Allergy (Verified 12/12/16 10:42) MS Nalbuphine [From Nubain] Allergy (Verified 12/12/16 10:42) MS Oxycodone [From Tylox] Allergy (Verified 12/12/16 10:42) - Review of Systems ROS: No change since H&P - Vital Signs and I&O's Vital Signs: Temperature 98.5 F Pulse Rate [Right Brachial] 66 Pulse Rate [Apical] 56 Respiratory Rate 20 Blood Pressure [Right Arm] 171/72 O2 Sat by Pulse Oximetry 98 Intake and Output: Intake & Output 12/11/16 12/12/16 12/13/16 12/14/16 11:59 11:59 11:59 11:59 Intake Total 970 795 Balance 970 795 - Physical Exam Oriented: Normal Eyes: Normal. negative: Blurred Vision, Diplopia, Discharge, Pain, Redness, Photophobia, Other Ear: Normal. negative: Right, Left, Swelling, Ecchymosis, Hemotypanum, Abrasion , Laceration Nose: Normal. negative: Injected, Discharge, Blood, Other Throat: Normal. negative: Tonsillar Hypertrophy, Red, Exudate, Dry, Other Respiratory: Normal Cardiovascular: Normal. negative: Tachycardia, Bradycardia, Irregular, S3, S4, Systolic, Diastolic, Murmur, Edema, Other : Normal. negative: Dysuria, Hematuria, Frequency, Discharge, Testicular Pain , Bleeding, , Other Auscultation: Bowel Sounds: Normal. negative: Bruit, Absent, Increased, Decreased, High Pitched, Other Palpation: Normal Tenderness: Normal. negative: Diffuse, RUQ, RLQ, LUQ, LLQ, Epigastric, Periumbilical, Suprapubic, Mild, Moderate, Severe, Rebound, Guarding, Rigidity, Other Skin: Normal. negative: Decreased Turgur, Rash, Papular, Macular, Maculopapular , Vesicular, Pustular, Petechial, Red, Tender, Hot, Diaphoresis, Wound, Bruising , Ecchymosis, Other Musculoskeletal: Normal. negative: Right, Left, Shoulder, Clavicle, Arm, Elbow , Forearm, Wrist, Hand, Hip, Thigh, Knee, Leg, Ankle, Foot, Back:Thoracic, Back: Lumbar, Back:Midline, Back:Paraspinous, Pelvis, Swelling, Tender, Deformity, Pulse Deficit, Motor Deficit, Sensory Deficit, Instability, Crepitance Psychiatric: Normal. negative: Anxiety, Depression, Agitation, Other Mood Description: Calm, Appropriate. negative: Angry, Apathetic, Depressed, Fearful, Flat, Happy, Hostile, Sad, Suspicious, Withdrawn, Anxious, Labile Affect: Normal Speech Pattern: Clear - Laboratory and Diagnostics Result Diagrams: 12/14/16 04:05 12/14/16 04:05 Labs: Laboratory WBC 4.8 X10^3/uL (3.6-10.0) 12/14/16 04:05 RBC 3.46 X10^6/uL (3.5-5.4) L 12/14/16 04:05 Hgb 10.5 g/dL (12.0-16.0) L 12/14/16 04:05 Hct 30.1 % (36.0-47.0) L 12/14/16 04:05 MCV 86.9 fL (80.0-100.0) 12/14/16 04:05 MCH 30.2 pg (27.0-34.0) 12/14/16 04:05 MCHC 34.7 g/dL (33.0-35.0) 12/14/16 04:05 RDW 13.8 % (11.6-16.5) 12/14/16 04:05 Plt Count 230 X10^3/uL (150.0-450.0) 12/14/16 04:05 MPV 8.8 fL (7.4-11.0) 12/14/16 04:05 Neut % 38.5 % (42.0-75.0) L 12/14/16 04:05 Lymph % 45.7 % (21.0-51.0) 12/14/16 04:05 [place] % 11.6 % (0.0-13.0) 12/14/16 04:05 Eos % 2.9 % (0.9-2.9) 12/14/16 04:05 Baso % 1.3 % (0.2-1.0) H 12/14/16 04:05 Neut # 1.9 x10^3/uL (2.2-4.8) L 12/14/16 04:05 Lymph # 2.2 X10^3/uL (1.3-2.9) 12/14/16 04:05 [place] # 0.6 x10^3/uL (0.3-0.8) 12/14/16 04:05 Eos # 0.1 x10^3/uL (0.0-0.2) 12/14/16 04:05 Baso # 0.1 X10^3/uL (0.0-0.1) 12/14/16 04:05 Absolute Nucleated RBC 0.1 /100WBC 12/14/16 04:05 INR Target Range - 12/12/16 05:00 INR 0.97 (0.8-1.3) 12/12/16 05:00 PTT 28.3 SECONDS (22.9-36.5) 12/12/16 05:00 PTT Comment - 12/12/16 05:00 D-Dimer 147 ng/mL (0-400) 12/12/16 05:00 Sodium 143 mmol/L (136-145) 12/14/16 04:05 Corrected Sodium TNP 12/14/16 04:05 Potassium 4.0 mmol/L (3.5-5.1) 12/14/16 04:05 Chloride 108 mmol/L (98-107) H 12/14/16 04:05 Carbon Dioxide 27.6 mmol/L (21-32) 12/14/16 04:05 BUN 18 mg/dL (7-18) 12/14/16 04:05 Creatinine 0.83 mg/dL (0.55-1.02) 12/14/16 04:05 Est GFR (MDRD) Af Amer > 60 (>60) 12/14/16 04:05 Est GFR (MDRD) Non-Af > 60 (>60) 12/14/16 04:05 Glucose 94 mg/dL (65-99) 12/14/16 04:05 Calcium 8.1 mg/dL (8.5-10.1) L 12/14/16 04:05 Corrected Calcium 8.9 mg/dL (8.5-10.1) 12/14/16 04:05 Magnesium 2.0 mg/dL (1.7-2.9) 12/12/16 05:00 Total Bilirubin 0.30 mg/dL (0.2-1.0) 12/14/16 04:05 AST 21 Units/L (15-37) 12/14/16 04:05 ALT 23 Units/L (12-78) 12/14/16 04:05 Alkaline Phosphatase 32 Units/L (46-116) L 12/14/16 04:05 Creatine Kinase 74 Units/L (26-192) 12/12/16 23:05 CK-MB (CK-2) < 1.0 ng/mL (0-4.0) 12/12/16 23:05 CK/CKMB % Calc 1.4 % (<4) 12/12/16 23:05 Troponin I < 0.02 ng/mL (0-1.5) 12/12/16 23:05 Total Protein 5.7 g/dL (6.4-8.2) L 12/14/16 04:05 Albumin 3.0 g/dL (3.4-5.0) L 12/14/16 04:05 Globulin 2.7 g/dL (2.5-4.5) 12/14/16 04:05 Albumin/Globulin Ratio 1.1 Ratio (1.1-2.1) 12/14/16 04:05 Triglycerides 61 mg/dL (0-150) 12/13/16 04:25 Cholesterol 201 mg/dL (0-200) H 12/13/16 04:25 LDL Cholesterol, Calc 128 mg/dL (0-100) H 12/13/16 04:25 HDL Cholesterol 61 mg/dL (40-60) H 12/13/16 04:25 Cholesterol/HDL Ratio 3.3 (0.0-5.0) 12/13/16 04:25 Specimen Type Clean catch urine 12/12/16 05:28 Urine Color Yellow (YELLOW) 12/12/16 05:28 Urine Appearance Clear (CLEAR) 12/12/16 05:28 Urine pH 8.0 (5.0 - 8.0) 12/12/16 05:28 Ur Specific [place] 1.015 (1.000-1.030) 12/12/16 05:28 Urine Protein Negative (NEGATIVE) 12/12/16 05:28 Urine Glucose (UA) Negative (NEGATIVE) 12/12/16 05:28 Urine Ketones Negative (NEGATIVE) 12/12/16 05:28 Urine Occult Blood Negative (NEGATIVE) 12/12/16 05:28 Urine Nitrite Negative (NEGATIVE) 12/12/16 05:28 Urine Bilirubin Negative (NEGATIVE) 12/12/16 05:28 Urine Urobilinogen Normal (NORMAL) 12/12/16 05:28 Ur Leukocyte Esterase Negative (NEGATIVE) 12/12/16 05:28 Urine RBC None seen /HPF (NEGATIVE) 12/12/16 05:28 Urine WBC None seen /HPF (NEGATIVE) 12/12/16 05:28 Ur Squamous Epith Cells Rare /HPF (NEGATIVE) 12/12/16 05:28 Urine Bacteria 1+ /HPF (NEGATIVE) 12/12/16 05:28 Ur Culture Indicated? No/not indicated 12/12/16 05:28 H. pylori IgG Antibody Positive (NEGATIVE) A 12/12/16 05:00 - Plan (1) Chest pain, rule out acute myocardial infarction Status: Acute Plan: CARDIAC ENZYMES, EKG, CONTINUE TO MONITOR (2) Gastritis, Helicobacter pylori Status: Acute Plan: PEPCID, PROTONIX, GI COCKTAIL, CONTINUE TO MONITOR (3) Nausea Status: Acute Plan: ZOFRAN, CONTINUE TO MONITOR (4) Hyperlipidemia Status: Chronic Qualifiers: Hyperlipidemia type: H Plan: CONTINUE TRICOR, CONTINUE TO MONITOR (5) Hypertension Status: Chronic Qualifiers: Hypertension type: essential hypertension Qualified Code(s): I10 - Essential (primary) hypertension Plan: CONTINUE COZAAR, CONTINUE TO MONITOR (6) Hypothyroidism Status: Chronic Qualifiers: Hypothyroidism type: acquired Qualified Code(s): E03.9 - Hypothyroidism, unspecified Plan: CONTINUE SYNTHROID, CONTINUE TO MONITOR
[2016-12-14 16:29] LABS: AMYLASE 35 Units/L (25-115); LIPASE 73 Units/L (73-393)
[2016-12-15] MEDS: NS 1000 ML 1,000 ML IV SCH (04:54)
[2016-12-15 05:59] LABS: BASOPHILS # (AUTO) 0.1 X10^3/uL (0.0-0.1); BASOPHILS % (AUTO) 1.3 % (0.2-1.0); EOSINOPHILS # (AUTO) 0.2 x10^3/uL (0.0-0.2); EOSINOPHILS % (AUTO) 3.2 % (0.9-2.9); HEMATOCRIT 31.2 % (36.0-47.0); HEMOGLOBIN 10.9 g/dL (12.0-16.0); LYMPHOCYTES # (AUTO) 2.1 X10^3/uL (1.3-2.9); LYMPHOCYTES % (AUTO) 44.2 % (21.0-51.0); MEAN CORPUSCULAR HEMOGLOBIN 30.1 pg (27.0-34.0); MEAN CORPUSCULAR HGB CONC 34.8 g/dL (33.0-35.0); MEAN CORPUSCULAR VOLUME 86.6 fL (80.0-100.0); MEAN PLATELET VOLUME 8.9 fL (7.4-11.0); MONOCYTES # (AUTO) 0.5 x10^3/uL (0.3-0.8); MONOCYTES % (AUTO) 10.4 % (0.0-13.0); NEUTROPHILS # (AUTO) 1.9 x10^3/uL (2.2-4.8); NEUTROPHILS % (AUTO) 40.9 % (42.0-75.0); PLATELET COUNT 244 X10^3/uL (150.0-450.0); RED CELL DISTRIBUTION WIDTH 13.4 % (11.6-16.5); WHITE BLOOD COUNT 4.7 X10^3/uL (3.6-10.0)
[2016-12-15] MEDS: LYRICA CAP 50 MG PO SCH (06:13)
[2016-12-15] MEDS: SYNTHROID 50 mcg TAB PO SCH (06:13)
[2016-12-15 06:16] LABS: ALANINE AMINOTRANSFERASE 24 Units/L (12-78); ALKALINE PHOSPHATASE 35 Units/L (46-116); ASPARTATE AMINO TRANSFERASE 22 Units/L (15-37); BLOOD UREA NITROGEN 17 mg/dL (7-18); CALCIUM 8.2 mg/dL (8.5-10.1); CARBON DIOXIDE 27.7 mmol/L (21-32); CHLORIDE 108 mmol/L (98-107); CREATININE 0.76 mg/dL (0.55-1.02); GLUCOSE 92 mg/dL (65-99); SODIUM 142 mmol/L (136-145); eGFR BLACK RACES > 60 (>60); eGFR NON BLACK RACES > 60 (>60)
--- NOTE | 2016-12-15 07:26 | RAD ---
HISTORY: Chest pain Study: Chest one view Comparison: December 14, 2016 Findings: The trachea is midline. The cardiac silhouette is unremarkable. The lungs are clear without focal infiltrate or effusion. The bony thorax is unremarkable. IMPRESSION: 1. No acute cardiopulmonary disease. Reported By:
[2016-12-15] MEDS: LEVSIN/MAALOX/LIDOC VISC PO SCH (08:58)
[2016-12-15] MEDS: PEPCID 20 MG IV PREMIX* 20 MG/50 ML BAG IV SCH (08:58)
[2016-12-15] MEDS: VITAMIN D3 PO SCH (08:59)
[2016-12-15] MEDS: COLACE CAP 100 MG PO SCH (08:59)
[2016-12-15] MEDS: TAB-A-VITE PO SCH (09:00)
[2016-12-15] MEDS: ASPIRIN PO SCH (09:00)
[2016-12-15] MEDS: COZAAR PO SCH (09:00)
[2016-12-15] MEDS: TRICOR TAB 160 MG PO SCH (09:00)
[2016-12-15] MEDS: PROTONIX TAB 40 MG PO SCH (09:00)
[2016-12-15] MEDS: NORVASC TAB 10 MG PO SCH (09:00)
[2016-12-15] MEDS: ARICEPT TAB 10 MG PO SCH (09:00)
[2016-12-15 09:46] VITALS: BP 162/70
== END 2016-12-15 10:00 | disposition home or self-care (01) ==
LOC: ER 04:59 → MED/SURG 06:25
PROVIDERS: ADMIT Internal Medicine; ATTEND Internal Medicine
DX: R07.89 Other chest pain (principal); R94.31 Abnormal electrocardiogram [ECG] [EKG]; R00.2 Palpitations; N18.2 Chronic kidney disease, stage 2 (mild); R10.84 Generalized abdominal pain; D64.89 Other specified anemias; F41.8 Other specified anxiety disorders; I10 Essential (primary) hypertension; K29.60 Other gastritis without bleeding; B96.81 Helicobacter pylori [H. pylori] as the cause of diseases classified elsewhere; R06.02 Shortness of breath; E78.2 Mixed hyperlipidemia; K21.9 Gastro-esophageal reflux disease without esophagitis; E03.8 Other specified hypothyroidism; R10.13 Epigastric pain; Z79.899 Other long term (current) drug therapy; Z79.01 Long term (current) use of anticoagulants
CPT/HCPCS: 36415; 71010; 80053; 80061; 81001; 82150; 82550; 82553; 83690; 83735; 84484; 85025; 85378; 85610; 85730; 86677; 87338; 93005; 94760; 96365; 96367; 99284; A4216; A4222; S0028; G0378; J2550

== ENCOUNTER 2017-07-30 03:06 | Emergency (ER) | payer OTHER, MEDICARE ==
[2017-07-30 03:20] VITALS: BMI 25.7
--- NOTE | 2017-07-30 03:35 | DR.GENAD ---
HPI - PCP Primary Care Physician: watson - Complaint/Symptoms Chief Complaint Doctors Comments: Patient presents to the ED with complaint of increasing tremors for the past two days. 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 She denies cough, fever or headache. Chief Complaint:: shaking - Source History Provided: Patient - Mode of Arrival Mode of Arrival: Wheelchair - Timing Onset of Chief Complaint: 07/30/17 PMH - PMH Past Medical History: Yes Past Medical History: Anxiety, Arthritis, Dementia, Dyslipidemia, GERD, Hypertension, Hypothyroidism Past Surgical History: Yes Surgical History: Cholecystectomy, Hysterectomy - Family History History of Family Medical Conditions: Yes Family Medical History: Diabetes Mellitus, Cancer, Coronary Artery Disease, Hypertension - Social History Does any household member use tobacco: No Alcohol Use: None Do you use any recreational Drugs:: No Lives With: Significant Other Lives Where: Home - infectious screening In the last 2 months have you had wt loss of >10#?: NO Have you had fever, night sweats or hemotysis?: No Have you traveled outside the country in the last 6 months?: No Isolation: Standard ROS - Review of Systems Eyes: No Symptoms Reported ENTM: No Symptoms Reported Respiratoy: No Symptoms Reported Cardiovascular: No Symptoms Reported Gastrointestinal/Abdominal: No Symptoms Reported Genitourinary: No Symptoms Reported Neurological: No Symptoms Reported Musculoskeletal: Muscle Pain Integumentary: No Symptoms Reported Hematologic/Lymphatic: No Symptoms Reported Endocrine: No Symptoms Reported Psychiatric: No Symptoms Reported All Other Systems: Reviewed and Negative PE - Vital Signs Vitals: Temperature 97.9 F Pulse Rate 56 Respiratory Rate 22 Blood Pressure [Left Arm] 162/70 Blood Pressure [Right Arm] 154/70 Blood Pressure 175/77 O2 Sat by Pulse Oximetry 100 - General Limitations: No Limitations General Appearance: Alert, In No Apparent Distress - Head Head Exam: Normal Inspection, Atraumatic - Eyes Eye exam: Normal Appearance, PERRL, EOMI - ENT ENT Exam: Normal Exam External Ear Exam: Normal External Inspection TM/Canal Exam: Bilateral Normal Nose Exam: Normal Nose Exam Mouth Exam: Normal Inspection Throat Exam: Normal Inspection - Neck Neck Exam: Normal Inspection, Full ROM - Chest Chest Inspection: Normal Inspection - Respiratory Respiratory Exam: Normal Lung Sounds Bilat Respiratory Exam: Bilateral Clear to Auscultation - Cardiovascular Cardiovascular Exam: Regular Rate - Abdominal Exam Abdominal Exam: Normal Inspection Abdominal Tenderness: negative: RUQ, RLQ, LUQ, LLQ, Epigastrium, Suprapubic, Diffuse, Mild, Moderate, Severe, Other - Extremities Extremities Exam: Normal Inspection, Full ROM - Back Back Exam: Normal Inspection - Neurologic Neurological Exam: Alert, Oriented X3, CN II-XII Intact - Psychiatric Psychiatric Exam: Normal Affect - Skin Skin Exam: Warm, Dry, Intact Course - Treatment Treatment: TSH elevated-advised to hold thyroid medication for 2-3 days follow up with pcp and get rechecked. - Reevaluation 1st: Improved - Education/Counseling Educated On: Treatment, Diagnosis, Prognosis, Needs for Follow Up ROR - Labs Reviewed Laboratory Results Reviewed?: Yes (low potassium) Result Diagrams: 07/30/17 03:52 07/30/17 03:52 Laboratory: WBC 4.7 X10^3/uL (3.6-10.0) 07/30/17 03:52 RBC 3.93 X10^6/uL (3.5-5.4) 07/30/17 03:52 Hgb 11.7 g/dL (12.0-16.0) L 07/30/17 03:52 Hct 33.7 % (36.0-47.0) L 07/30/17 03:52 MCV 85.7 fL (80.0-100.0) 07/30/17 03:52 MCH 29.7 pg (27.0-34.0) 07/30/17 03:52 MCHC 34.6 g/dL (33.0-35.0) 07/30/17 03:52 RDW 13.8 % (11.6-16.5) 07/30/17 03:52 Plt Count 226 X10^3/uL (150.0-450.0) 07/30/17 03:52 MPV 9.5 fL (7.4-11.0) 07/30/17 03:52 Neut % 40.0 % (42.0-75.0) L 07/30/17 03:52 Lymph % 46.5 % (21.0-51.0) 07/30/17 03:52 [place] % 10.8 % (0.0-13.0) 07/30/17 03:52 Eos % 1.8 % (0.9-2.9) 07/30/17 03:52 Baso % 0.9 % (0.2-1.0) 07/30/17 03:52 Neut # 1.9 x10^3/uL (2.2-4.8) L 07/30/17 03:52 Lymph # 2.2 X10^3/uL (1.3-2.9) 07/30/17 03:52 [place] # 0.5 x10^3/uL (0.3-0.8) 07/30/17 03:52 Eos # 0.1 x10^3/uL (0.0-0.2) 07/30/17 03:52 Baso # 0.0 X10^3/uL (0.0-0.1) 07/30/17 03:52 Absolute Nucleated RBC 0.0 /100WBC 07/30/17 03:52 Sodium 142 mmol/L (136-145) 07/30/17 03:52 Corrected Sodium TNP 07/30/17 03:52 Potassium 3.4 mmol/L (3.5-5.1) L 07/30/17 03:52 Chloride 105 mmol/L (98-107) 07/30/17 03:52 Carbon Dioxide 25.9 mmol/L (21-32) 07/30/17 03:52 BUN 20 mg/dL (7-18) H 07/30/17 03:52 Creatinine 0.94 mg/dL (0.55-1.02) 07/30/17 03:52 Est GFR (MDRD) Af Amer > 60 (>60) 07/30/17 03:52 Est GFR (MDRD) Non-Af > 60 (>60) 07/30/17 03:52 Glucose 105 mg/dL (65-99) H 07/30/17 03:52 Calcium 8.9 mg/dL (8.5-10.1) 07/30/17 03:52 Corrected Calcium TNP 07/30/17 03:52 Total Bilirubin 0.40 mg/dL (0.2-1.0) 07/30/17 03:52 AST 28 Units/L (15-37) 07/30/17 03:52 ALT 22 Units/L (12-78) 07/30/17 03:52 Alkaline Phosphatase 36 Units/L (46-116) L 07/30/17 03:52 Total Protein 6.8 g/dL (6.4-8.2) 07/30/17 03:52 Albumin 3.7 g/dL (3.4-5.0) 07/30/17 03:52 Globulin 3.1 g/dL (2.5-4.5) 07/30/17 03:52 Albumin/Globulin Ratio 1.2 Ratio (1.1-2.1) 07/30/17 03:52 TSH 3rd Generation 4.376 uIU/mL (0.358-3.74) H 07/30/17 03:52 Specimen Type Clean catch urine 07/30/17 05:35 Urine Color Yellow (YELLOW) 07/30/17 05:35 Urine Appearance Clear (CLEAR) 07/30/17 05:35 Urine pH 8.0 (5.0 - 8.0) 07/30/17 05:35 Ur Specific [place] 1.015 (1.000-1.030) 07/30/17 05:35 Urine Protein Negative (NEGATIVE) 07/30/17 05:35 Urine Glucose (UA) Negative (NEGATIVE) 07/30/17 05:35 Urine Ketones Negative (NEGATIVE) 07/30/17 05:35 Urine Occult Blood Negative (NEGATIVE) 07/30/17 05:35 Urine Nitrite Negative (NEGATIVE) 07/30/17 05:35 Urine Bilirubin Negative (NEGATIVE) 07/30/17 05:35 Urine Urobilinogen Normal (NORMAL) 07/30/17 05:35 Ur Leukocyte Esterase Negative (NEGATIVE) 07/30/17 05:35 Urine RBC 0-3 /HPF (NONE SEEN) 07/30/17 05:35 Urine WBC 0-3 /HPF (NONE SEEN) 07/30/17 05:35 Ur Squamous Epith Cells Rare /HPF (NEGATIVE) 07/30/17 05:35 Urine Bacteria Negative /HPF (NEGATIVE) 07/30/17 05:35 Ur Culture Indicated? No/not indicated 07/30/17 05:35 - XRAY XRAY Interpreted by: Radiologist (Chest: No acute chest process or significant change from prior film (12/15/16) - Diagnosis Discharge Problem: Dehydration, Hyperthyroidism, Hypokalemia - Discharge Plan Condition: Stable - Follow ups/Referrals Follow ups/Referrals: KATINA MARTINEZ [Primary Care Provider] - 3 days - Instructions
[2017-07-30] MEDS ORDERED: NS 1000 ML 1,000 ML ONE (03:46)
[2017-07-30] MEDS ORDERED: NS 1000 ML 1,000 ML IV SCH (04:00)
--- NOTE | 2017-07-30 04:08 | RAD ---
Chest, AP portable Indication: Cough Comparison: 12/15/2016 Findings: Cardiac silhouette is unremarkable. The lungs are essentially clear without dense infiltr ate or pleural effusion. Impression: No acute chest process or significant change from prior. Reported By:
[2017-07-30 04:11] LABS: BASOPHILS % (AUTO) 0.9 % (0.2-1.0); EOSINOPHILS # (AUTO) 0.1 x10^3/uL (0.0-0.2); EOSINOPHILS % (AUTO) 1.8 % (0.9-2.9); HEMATOCRIT 33.7 % (36.0-47.0); HEMOGLOBIN 11.7 g/dL (12.0-16.0); LYMPHOCYTES # (AUTO) 2.2 X10^3/uL (1.3-2.9); LYMPHOCYTES % (AUTO) 46.5 % (21.0-51.0); MEAN CORPUSCULAR HEMOGLOBIN 29.7 pg (27.0-34.0); MEAN CORPUSCULAR HGB CONC 34.6 g/dL (33.0-35.0); MEAN CORPUSCULAR VOLUME 85.7 fL (80.0-100.0); MEAN PLATELET VOLUME 9.5 fL (7.4-11.0); MONOCYTES # (AUTO) 0.5 x10^3/uL (0.3-0.8); MONOCYTES % (AUTO) 10.8 % (0.0-13.0); NEUTROPHILS # (AUTO) 1.9 x10^3/uL (2.2-4.8); PLATELET COUNT 226 X10^3/uL (150.0-450.0); RED BLOOD COUNT 3.93 X10^6/uL (3.5-5.4); RED CELL DISTRIBUTION WIDTH 13.8 % (11.6-16.5); WHITE BLOOD COUNT 4.7 X10^3/uL (3.6-10.0)
[2017-07-30 04:26] LABS: ALANINE AMINOTRANSFERASE 22 Units/L (12-78); ALBUMIN 3.7 g/dL (3.4-5.0); ALKALINE PHOSPHATASE 36 Units/L (46-116); ASPARTATE AMINO TRANSFERASE 28 Units/L (15-37); BLOOD UREA NITROGEN 20 mg/dL (7-18); CALCIUM 8.9 mg/dL (8.5-10.1); CARBON DIOXIDE 25.9 mmol/L (21-32); CHLORIDE 105 mmol/L (98-107); CREATININE 0.94 mg/dL (0.55-1.02); SODIUM 142 mmol/L (136-145); TOTAL PROTEIN 6.8 g/dL (6.4-8.2); TSH (3RD GENERATION) 4.376 uIU/mL (0.358-3.74); eGFR BLACK RACES > 60 (>60); eGFR NON BLACK RACES > 60 (>60)
[2017-07-30] MEDS ORDERED: K-LYTE EFFERVESCENT PO ONE (05:32)
[2017-07-30 05:42] LABS: BILIRUBIN,URINE NEGATIVE (NEGATIVE); BLOOD/HEMOGLOBIN,URINE NEGATIVE (NEGATIVE); GLUCOSE, URINE NEGATIVE (NEGATIVE); KETONES,URINE NEGATIVE (NEGATIVE); LEUKOCYTE ESTERASE ,URINE NEGATIVE (NEGATIVE); NITRITES,URINE NEGATIVE (NEGATIVE); PROTEIN,URINE NEGATIVE (NEGATIVE); UROBILINOGEN,URINE NORMAL (NORMAL)
[2017-07-30] MEDS ORDERED: K-LYTE EFFERVESCENT ONE (05:48)
[2017-07-30 05:55] LABS: APPEARANCE,URINE CLEAR (CLEAR); BACTERIA,URINE NEGATIVE /HPF (NEGATIVE); COLOR,URINE YELLOW (YELLOW); RBC,URINE 0-3 /HPF (NONE SEEN); SQUAMOUS EPITHELIAL CELL,UR RARE /HPF (NEGATIVE)
[2017-07-30 06:30] VITALS: BP 143/64
== END 2017-07-30 06:26 | disposition home or self-care (01) ==
LOC: ER 03:06
DX: E86.0 Dehydration (principal); E03.9 Hypothyroidism, unspecified; E87.6 Hypokalemia
CPT/HCPCS: 36415; 71045; 80053; 81001; 84443; 85025; 93005; 93010; 96365; 96367; 99283; A4222